=== PATIENT | male | born 1990 | race Caucasian/White ===

== ENCOUNTER 2020-10-25 20:45 | Emergency (ER) | payer MEDICAID, SELFPAY ==
--- NOTE | 2020-10-25 21:10 | NUR ---
[id number]
--- NOTE | 2020-10-25 21:17 | NUR ---
NOT IN LOBBY
--- NOTE | 2020-10-25 21:37 | NUR ---
NOT IN LOBBY
--- NOTE | 2020-10-25 22:01 | NUR ---
NOT IN LOBBY
== END 2020-10-25 22:09 | disposition left against medical advice (07) ==
LOC: ED 21:00
DX: M79.601 Pain in right arm (principal); Z53.21 Procedure and treatment not carried out due to patient leaving prior to being seen by health care provider
CPT/HCPCS: 99285